=== PATIENT | female | born 1995 | race Caucasian/White ===

== ENCOUNTER 2016-04-26 15:18 | Emergency (ER) | payer OTHER | END 2016-04-26 17:05 | disposition home or self-care (01) | LOC: ER 15:18 | DX: I40.0 Infective myocarditis (principal); J11.1 Influenza due to unidentified influenza virus with other respiratory manifestations; E66.9 Obesity, unspecified; K21.9 Gastro-esophageal reflux disease without esophagitis; Z91.040 Latex allergy status; Z88.6 Allergy status to analgesic agent; Z88.8 Allergy status to other drugs, medicaments and biological substances | CPT/HCPCS: 36415; 87502; 96374; 96375; J1885 ==